=== PATIENT | female | born 2000 | race Caucasian/White ===

== ENCOUNTER → 2023-08-06 12:43 | Outpatient (CLI) | payer OTHER, SELFPAY ==
--- NOTE | ~2023-08-06 | MR_ITS ---
MRI of the left knee Clinical history: Juvenile osteochondrosis of tibial tubercle Technique: Coronal proton density and proton density-weighted images, sagittal proton-density and T2 fat-sat images, and axial proton-density fat-saturated images were acquired. Findings: Anterior and posterior cruciate ligaments are intact. Medial collateral ligament and the la teral collateral ligament conflux are intact. Popliteus tendon is intact. Medial and lateral menisci are intact, without evidence of tear. Articular cartilage is well preserved throughout the knee. Bone marrow signals are unremarkable. Ther e is a large chronic fragmentation at the tibial tubercle. No marrow or soft tissue edema. Extensor mechanism is otherwise intact. No joint effusion or Evans's cyst. Impression: No acute abnormality. 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 Reviewed, dictated and finalized at [facility]. [employer] Impression: No acute abnormality. Findings suggestive of chronic/old Titi-Schlatter's dis ease.
== END ==
DX: M92.522 Juvenile osteochondrosis of tibia tubercle, left leg (principal)
CPT/HCPCS: 73721